=== PATIENT | female | born 1980 | race Caucasian/White ===

== ENCOUNTER → 2021-11-28 | Outpatient (CLI) | payer OTHER ==
[~2021-11-28] MED LIST: FLEXERIL PO; MECLIZINE 25 MG25 M1 PO; MEDROLDOSEPACK PO; PREDNISONE; ULTRAM 50MG TAB50 MG PO; ZANTAC; ZYRTEC-D TABLE1 EAC1
--- NOTE | ~2021-11-28 | CARD ---
[address] [address] CARDIAC CATH REPORT Name: MILLIE PURI Room: [facility]#: [id number] Admission: 11/28/21 Attend Phys: Tiago Gandhi DO Discharge: Date of : 84 Report #: [id number] THIS REPORT FOR: cc: Cyrus Muniz MD, Tuongvan T. MD Blick, David R. MD FAC ~ cc: Tiago Gandhi DO DATE OF SERVICE: 11/28/2021 CARDIOLOGY STRESS TEST PROCEDURE: Kelvin protocol exercise stress test without imaging. INDICATION: Stress test was requested in this patient with a history of chest pain. RESULTS: The patient had a pretest heart rate of 85, blood pressure 129/79. The patient was able to exercise for 10 minutes and 6 seconds achieving a peak heart rate of 171, which is greater than 90% of maximum predicted heart rate for the patient's age. Peak blood pressure 204/79. In recovery, the patient had a heart rate of 103, blood pressure 120/80. The patient denied chest pain with exercise, which was terminated due to shortness of breath. The patient's resting ECG showed a normal sinus rhythm with no significant ST or T-wave changes noted at baseline. With exercise, there were no arrhythmias noted. The patient did develop J-point depression with exercise, but there was no significant ST segment depression noted at 80 milliseconds after the J-point. IMPRESSION: 1. Exercise tolerance, average. 2. Clinical response, nonischemic. 3. ECG response, nonischemic. This exercise stress test represents a low risk for predicting future cardiac events. By: [id number] Thakkar MD, FACC /nt
== END ==
LOC: M.CRD 11-24 15:00
PROVIDERS: ATTEND Family Medicine
DX: I10 Essential (primary) hypertension (principal); R07.9 Chest pain, unspecified; Z82.49 Family history of ischemic heart disease and other diseases of the circulatory system